=== PATIENT | male | born 1945 | race Caucasian/White ===

== ENCOUNTER 2016-05-28 09:42 | Outpatient (CLI) | payer MEDICARE ==
--- NOTE | 2016-05-28 15:53 | Diagnostic Imaging Report ---
[facility] [id number] [facility].[address] [id number] Report Submission Date: May 28, 2016 2:36:59 PM [facility]LOOR Patient Study Name: JOVITA ROMERO Date: May 28, 2016 10:04:53 AM [facility]LOOR Modality Type: US Gender: M Description: US SCROTUM & CONTENTS : 43 Institution: [facility] Physician ZENOBIA CHAKRABORTY - OP Scrotal ultrasound CLINICAL HISTORY: Left testicular pain for 1 week. TECHNIQUE: Real-time sonography of the scrotum is performed in transverse and longitudinal views. Doppler interrogation and color flow imaging are additionally used. FINDINGS: The right testis measures 4.6 cm in length by 2.5 x 3.4 cm in size with a calculated volume of 20.4 mL. Left testis measures 4.8 cm in length by 2.6 x 3.3 cm in size with a calculated volume of 21.8 mL. Testicular echotexture is homogeneous. Blood flow is confirmed in both testes on color flow imaging and Doppler interrogation. There are bilateral hydroceles larger on the left that appears simple. Epididymis is unremarkable. There is no hypoechoic or hyperechoic solid mass. IMPRESSION: Prominent left hydrocele. Small right hydrocele that appears simple. Normal testes. Electronically signed on May 28, 2016 2:36:59 PM [facility]LOOR by: Mustapha CLARK
== END 2016-05-28 09:45 ==
LOC: RAD 09:42
PROVIDERS: ATTEND Family Medicine
DX: N50.89 Other specified disorders of the male genital organs (principal); N50.819 Testicular pain, unspecified
CPT/HCPCS: 76870